=== PATIENT | male | born 1970 | race Hispanic/Latino ===

== ENCOUNTER 2018-11-08 19:38 | Inpatient (IN) | payer SELFPAY ==
[~2018-11-08] VITALS: Ht 162.6 cm; Wt 102.1 kg
[2018-11-08] MEDS ORDERED: ACETAMINOPHEN EXTRA STRENGTH 500 MG TABLET ONE (20:24)
[2018-11-08] MEDS ORDERED: SODIUM CHLORIDE 0.9% 1000ML 1,000 ML IV ONE ×2 (20:24→21:55)
[2018-11-08 20:32] LABS: BASOPHILS % (AUTO) 0.2 % (0.0-5.0); EOSINOPHILS % (AUTO) 0.2 % (0.0-8.0); HEMATOCRIT 40.6 % (42-54); LYMPHOCYTES % (AUTO) 11.6 % (21.0-51.0); MEAN CORPUSCULAR HEMOGLOBIN 30.5 pg (27.0-33.0); MEAN CORPUSCULAR HGB CONC 34.2 g/dL (32.0-36.0); MEAN CORPUSCULAR VOLUME 89.2 fL (79-99); MONOCYTES % (AUTO) 5.2 % (3.0-13.0); NEUTROPHILS % (AUTO) 82.8 % (40.0-77.0); PLATELET COUNT (AUTO) 407 K/uL (130-400); RED BLOOD CELL COUNT(AUTO) 4.55 MIL/uL (4.50-6.20); WHITE BLOOD COUNT (AUTO) 10.9 K/uL (4.8-10.8)
[2018-11-08] MEDS ORDERED: ZOSYN 3.375GM+NS 50ML 50 ML IV ONE (20:48)
[2018-11-08 20:51] LABS: INR 0.93 (0.85-1.15); PARTIAL THROMBOPLASTIN TIME 28.4 SEC (26.3-35.5); PROTHROMBIN TIME 9.8 SEC (9.6-11.6)
[2018-11-08 20:53] LABS: CARBON DIOXIDE 22 mmol/L (21-32); CHLORIDE 96 mmol/L (101-111); CREATININE 1.1 mg/dL (0.5-1.5); GLOMERULAR FILTR. RATE CALC 76 mL/min (>60); GLUCOSE,RANDOM 141 mg/dL (70-105); POTASSIUM 3.6 mmol/L (3.5-5.1); SODIUM SERUM 131 mmol/L (136-145); UREA NITROGEN, BLOOD 10 mg/dL (7-18)
[2018-11-08 20:58] LABS: APPEARANCE,URINE Cloudy (CLEAR); BILIRUBIN,URINE Small (NEGATIVE); COLOR,URINE Dark Yellow (YELLOW); GLUCOSE, URINE (UA) Negative (NEGATIVE); KETONES,URINE Trace mg/dL (NEGATIVE); LEUKOCYTE ESTERASE ,URINE Trace (NEGATIVE); NITRATE,URINE Negative (NEGATIVE); OCCULT BLOOD,URINE Negative (NEGATIVE); PROTEIN,URINE POS 1+ mg/dL (NEGATIVE)
[2018-11-08 21:05] LABS: ALANINE AMINOTRANSFERASE 103 U/L (12-78); ALBUMIN 2.7 g/dL (3.5-5.0); ASPARTATE AMINOTRANSFERASE 60 U/L (10-37); BILIRUBIN,TOTAL 0.6 mg/dL (0.2-1.0); CREATINE KINASE, TOTAL 51 U/L (21-232); MYOGLOBIN 37 ng/mL (10-92); TROPONIN I < 0.04 ng/mL (0.00-0.06)
[2018-11-08 21:10] LABS: RBC,URINE 0-1 /HPF (0-1)
[2018-11-08 21:11] LABS: BACTERIA,URINE Few /HPF (None Seen); SQUAMOUS EPITHELIAL CELL,UR Few /HPF (0-2)
[2018-11-08 21:12] LABS: MUCUS,URINE Moderate LPF (None Seen)
[2018-11-08] MEDS ORDERED: MORPHINE SULFATE 4 MG/1ML SYG ONE (21:31)
[2018-11-08] MEDS ORDERED: LIDOCAINE HCL 2% JELLY 5 ML ONE (21:57)
[2018-11-08] MEDS ORDERED: LIDOCAINE PF 2% 5ML ABBOJECT ONE (22:29)
[2018-11-08] MEDS ORDERED: MIDAZOLAM HCL 1 MG/ML 2ML VIAL ONE (22:29)
[2018-11-08] MEDS ORDERED: PROPOFOL 10 MG/ML 20ML VIAL IV ONE (22:29)
[2018-11-08] MEDS ORDERED: SUCCINYLCHOLINE 200MG/10ML SYR ONE (22:29)
[2018-11-08] MEDS ORDERED: FENTANYL CITRATE PF 50 MCG/1 ML 2ML VIAL ONE ×3 (22:30→23:54)
[2018-11-08] MEDS ORDERED: ROCURONIUM 10MG/1ML SYR 10 MG/ML ML ONE (22:30)
[2018-11-08] MEDS ORDERED: NEOSTIGMINE 5MG/5ML SYR IV ONE (23:22)
[2018-11-08] MEDS ORDERED: GLYCOPYRROLATE 1 MG/5 ML SYRINGE ONE (23:22)
[2018-11-08] MEDS ORDERED: ONDANSETRON HCL 4 MG/2 ML VIAL ONE (23:49)
[2018-11-08] MEDS ORDERED: KETOROLAC TROMETHAMINE 30MG/ML ONE (23:57)
[2018-11-09] VITALS (34 sets, daily range): BP systolic 99–159; BP diastolic 45–83
--- NOTE | 2018-11-09 00:30 | NUR ---
NEW ADMIT 48 YEAR OLD MALE PT RECEIVED FROM O.R. VIA BED. PT ON 100% NRM. MOVING ALL EXTREMITIES, PT ORIENTED TO ROOM. ASSESSMENT COMPLETED. SEE NURSING DATA BASE FOR MORE INFORMATION.
[2018-11-09] MEDS ORDERED: MORPHINE SULFATE 4 MG/1ML SYG ONE ×2 (01:42→06:09)
[2018-11-09] MEDS: LACTATED RINGERS 1000ML 1,000 ML IV SCH ×4 (01:45→21:13)
[2018-11-09] MEDS ORDERED: PHARMACY COMMUNICATION MISC SCH (01:45)
[2018-11-09] MEDS ORDERED: ONDANSETRON HCL 4 MG/2 ML VIAL IVP PRN (01:45)
[2018-11-09] MEDS ORDERED: ZOSYN 3.375GM+NS 50ML 50 ML IV SCH (02:00)
[2018-11-09 03:46] LABS: BASOPHILS % (AUTO) 0.1 % (0.0-5.0); HEMATOCRIT 34.4 % (42-54); LYMPHOCYTES % (AUTO) 8.6 % (21.0-51.0); MEAN CORPUSCULAR HEMOGLOBIN 30.7 pg (27.0-33.0); MEAN CORPUSCULAR VOLUME 90.4 fL (79-99); MONOCYTES % (AUTO) 8.1 % (3.0-13.0); NEUTROPHILS % (AUTO) 83.2 % (40.0-77.0); PLATELET COUNT (AUTO) 366 K/uL (130-400); RED CELL DISTRIBUTION WIDTH 13.9 % (11.0-15.5); WHITE BLOOD COUNT (AUTO) 13.6 K/uL (4.8-10.8)
[2018-11-09 03:54] LABS: CREATININE 1.2 mg/dL (0.5-1.5); POTASSIUM 4.3 mmol/L (3.5-5.1)
[2018-11-09] MEDS ORDERED: KETOROLAC TROMETHAMINE 30MG/ML ONE (03:57)
[2018-11-09] MEDS: ZOSYN 3.375GM+NS 50ML 50 ML IV SCH ×3 (06:13→21:12)
[2018-11-09 07:49] LABS: ABG BASE EXCESS -5.3 mmol/L (-2.0-3.0); ABG HCO3 19.2 mmol/L (21.0-28.0); ABG OXYGEN SATURATION 96.4 % (95.0-99.0); ABG PCO2 35 mmHg (35-48)
[2018-11-09] MEDS: KETOROLAC TROMETHAMINE 30MG/ML IV PRN (10:50)
--- NOTE | 2018-11-09 12:00 | NUR ---
CHETAN BHAKTA [employer] COORDINATOR FOR DR. WANG IN TO SEE PATIENT.
[2018-11-09] MEDS: MORPHINE SULFATE 4 MG/1ML SYG IV PRN ×3 (12:45→21:04)
--- NOTE | 2018-11-09 13:54 | NUR ---
DC PLAN VISITED WITH PATIENT. PATIENT LIVES WITH SPOUSE. INDEPENDENT ABLE TO PERFORM ADL'S. PATIENT HAS NO SERVICES OR DME'S. FEELS SAFE TO RETURN HOME. Addendum: 11/09/18 at 1356 by KEV OCONNELL RN CM Amended: Links added.
--- NOTE | 2018-11-09 14:27 | NUR ---
DC PLAN SET UP PATIENT WITH IRENE FOR COLOSTOMY SUPPLIES IN PATIENTS ROOM. Addendum: 11/09/18 at 1430 by KEV OCONNELL RN CM Amended: Links added.
--- NOTE | 2018-11-09 21:08 | NUR ---
DR GARCIA NOTIFIED OF PATIENT"S TEMPERATURE 101.8 AND ABD AEROBIC WOUND CULTURE RESULTS, NEW ORDERS FOR TYLENOL SUPPOSITORY PRN, OK TO TRANSFER TO MED/SURG, CONTINUE SAME ORDERS.
[2018-11-09] MEDS ORDERED: ACETAMINOPHEN 650 MG SUPPOSITORY RC ONE (21:09)
[2018-11-09] MEDS ORDERED: ACETAMINOPHEN 650 MG SUPPOSITORY RC PRN (21:15)
--- NOTE | 2018-11-09 21:30 | NUR ---
REPORT GIVEN TO TESSY FRYE , PATIENT TRANSFERRED TO ROOM 311.
[2018-11-10] MEDS: MORPHINE SULFATE 4 MG/1ML SYG IV PRN ×5 (01:14→22:25)
[2018-11-10 04:00] VITALS: BP 133/79
[2018-11-10] MEDS: ZOSYN 3.375GM+NS 50ML 50 ML IV SCH ×3 (05:15→21:22)
[2018-11-10] MEDS: LACTATED RINGERS 1000ML 1,000 ML IV SCH ×4 (05:16→21:28)
[2018-11-10 05:41] LABS: BASOPHILS % (AUTO) 0.2 % (0.0-5.0); EOSINOPHILS % (AUTO) 0.3 % (0.0-8.0); HEMATOCRIT 33.7 % (42-54); LYMPHOCYTES % (AUTO) 9.1 % (21.0-51.0); MEAN CORPUSCULAR HGB CONC 33.2 g/dL (32.0-36.0); MEAN CORPUSCULAR VOLUME 90.5 fL (79-99); MONOCYTES % (AUTO) 5.1 % (3.0-13.0); NEUTROPHILS % (AUTO) 85.3 % (40.0-77.0); NUCLEATED RED BLOOD CELLS 0.1 % (0.0-0.19); PLATELET COUNT (AUTO) 338 K/uL (130-400); RED BLOOD CELL COUNT(AUTO) 3.72 MIL/uL (4.50-6.20); RED CELL DISTRIBUTION WIDTH 14.3 % (11.0-15.5); WHITE BLOOD COUNT (AUTO) 14.2 K/uL (4.8-10.8)
[2018-11-10 05:48] LABS: POTASSIUM 3.9 mmol/L (3.5-5.1)
[2018-11-10 07:30] VITALS: BP 143/77
[2018-11-10 11:00] VITALS: BP 137/72
[2018-11-10 16:00] VITALS: BP 136/89
[2018-11-10 19:05] VITALS: BP 160/83
--- NOTE | 2018-11-10 19:27 | NUR ---
CM Note: [facility] approved, will deliver at pt's residence Spoke to Terri Fritz received all clinicals and pt's signed paper. Will have DME's delivered at pt's residence. Primary nurse aware. CM to cont to follow up.
[2018-11-10] MEDS: FAMOTIDINE 20MG TAB 20 MG TAB PO SCH (21:22)
[2018-11-10 23:05] VITALS: BP 138/76
[2018-11-11 03:10] VITALS: BP 148/92
[2018-11-11] MEDS: KETOROLAC TROMETHAMINE 30MG/ML IV PRN ×2 (03:56→15:32)
[2018-11-11] MEDS: LACTATED RINGERS 1000ML 1,000 ML IV SCH ×3 (04:54→20:24)
[2018-11-11] MEDS: ZOSYN 3.375GM+NS 50ML 50 ML IV SCH (04:54)
[2018-11-11 05:44] LABS: BASOPHILS % (AUTO) 0.4 % (0.0-5.0); EOSINOPHILS % (AUTO) 0.3 % (0.0-8.0); HEMATOCRIT 30.7 % (42-54); MEAN CORPUSCULAR HEMOGLOBIN 30.4 pg (27.0-33.0); MEAN CORPUSCULAR HGB CONC 33.5 g/dL (32.0-36.0); MEAN CORPUSCULAR VOLUME 90.8 fL (79-99); MONOCYTES % (AUTO) 4.6 % (3.0-13.0); NEUTROPHILS % (AUTO) 86.7 % (40.0-77.0); NUCLEATED RED BLOOD CELLS 0.1 % (0.0-0.19); PLATELET COUNT (AUTO) 344 K/uL (130-400); RED BLOOD CELL COUNT(AUTO) 3.38 MIL/uL (4.50-6.20); RED CELL DISTRIBUTION WIDTH 14.4 % (11.0-15.5); WHITE BLOOD COUNT (AUTO) 16.7 K/uL (4.8-10.8)
[2018-11-11 08:00] VITALS: BP 138/85
[2018-11-11] MEDS: FAMOTIDINE 20MG TAB 20 MG TAB PO SCH ×2 (08:42→20:23)
[2018-11-11] MEDS: MORPHINE SULFATE 4 MG/1ML SYG IV PRN (10:17)
[2018-11-11 11:55] VITALS: BP 138/72
[2018-11-11] MEDS: LEVOFLOXACIN 750 MG/D5W 150 ML 150 ML IV SCH (13:54)
[2018-11-11 15:47] VITALS: BP 127/75
[2018-11-11 20:29] VITALS: BP 145/75
[2018-11-11 23:18] VITALS: BP 134/86
[2018-11-12] MEDS: KETOROLAC TROMETHAMINE 30MG/ML IV PRN ×2 (01:59→09:55)
[2018-11-12 04:14] VITALS: BP 135/77
[2018-11-12 04:48] LABS: BASOPHILS % (AUTO) 0.2 % (0.0-5.0); EOSINOPHILS % (AUTO) 0.8 % (0.0-8.0); HEMATOCRIT 28.4 % (42-54); LYMPHOCYTES % (AUTO) 10.5 % (21.0-51.0); MEAN CORPUSCULAR HEMOGLOBIN 30.6 pg (27.0-33.0); MEAN CORPUSCULAR HGB CONC 34.2 g/dL (32.0-36.0); MEAN CORPUSCULAR VOLUME 89.5 fL (79-99); MONOCYTES % (AUTO) 5.6 % (3.0-13.0); NEUTROPHILS % (AUTO) 82.9 % (40.0-77.0); PLATELET COUNT (AUTO) 382 K/uL (130-400); RED BLOOD CELL COUNT(AUTO) 3.17 MIL/uL (4.50-6.20); RED CELL DISTRIBUTION WIDTH 14.2 % (11.0-15.5); WHITE BLOOD COUNT (AUTO) 13.5 K/uL (4.8-10.8)
[2018-11-12] MEDS: LACTATED RINGERS 1000ML 1,000 ML IV SCH ×2 (04:59→11:39)
[2018-11-12 08:00] VITALS: BP 134/84
[2018-11-12] MEDS: FAMOTIDINE 20MG TAB 20 MG TAB PO SCH ×2 (09:54→20:44)
[2018-11-12 11:49] VITALS: BP 136/68
[2018-11-12] MEDS: LEVOFLOXACIN 750 MG/D5W 150 ML 150 ML IV SCH (14:43)
[2018-11-12] MEDS: MORPHINE SULFATE 4 MG/1ML SYG IV PRN (15:34)
--- NOTE | 2018-11-12 16:00 | NUR ---
DRESSING TO SURGICAL WOUND CHANGED, WOUND OPEN, CLEAN AND REPACKED, COVERED WITH ABD, DRESSING. PRIOR TO DRESSING MEDICATED FOR DISCOMFORT.
[2018-11-12 17:02] VITALS: BP 146/88
[2018-11-12] MEDS ORDERED: LACTATED RINGERS 1000ML 1,000 ML IV SCH (18:45)
[2018-11-12 20:00] VITALS: BP 150/81
[2018-11-13] VITALS: BP 137/88
[2018-11-13] MEDS: KETOROLAC TROMETHAMINE 30MG/ML IV PRN ×2 (00:31→12:27)
[2018-11-13 04:00] VITALS: BP 151/89
[2018-11-13 08:00] VITALS: BP 145/93
--- NOTE | 2018-11-13 08:30 | NUR ---
WOUND DRESSING CHANGE DRESSING TO SURGICAL WOUND CHANGED. WOUND CLEANED WITH NS SOAKED GAUZE, WET TO DRY DRESSING APPLIED, COVERED WITH ABD PAD AND SECURED WITH MEDIPOR TAPE. PATIENT TOLERATED PROCEDURE WITHOUT INCIDENT. COLOSTOMY BAG CHANGED.
[2018-11-13] MEDS: FAMOTIDINE 20MG TAB 20 MG TAB PO SCH ×2 (10:12→21:12)
[2018-11-13 12:00] VITALS: BP 157/86
[2018-11-13] MEDS: LEVOFLOXACIN 750 MG/D5W 150 ML 150 ML IV SCH (13:43)
--- NOTE | 2018-11-13 15:08 | NUR ---
Nutrition Intervention: Nutrition screen based on LOS x 5 days. Pt. admitted with Dx of Diverticulitis of large intestine with perforation. Pt. on Soft diet with good p.o. intake. Pt. c/o loose stools. Pt. 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 Labs reviewed(Alb 2.7). LBM: 11/13/18, loose. SR-20, elastic. BMI: 38.6, Obesity Grade 2. Pt. educated on Colostomy Nutrition Therapy and provided with education material. Pt. verbalized understanding. Recommendations: 1) Rec. No Conc. Sweets Soft [place] diet. 2) Colostomy Nutrition Therapy diet education given to patient. 3) Continue to monitor pt's nutritional status. 4) Consult RD as nutrition concerns arise. Addendum: 11/13/18 at [address] Amended: Links added.
[2018-11-13 16:00] VITALS: BP 139/92
[2018-11-13 20:49] VITALS: BP 144/91
[2018-11-14] VITALS (7 sets, daily range): BP systolic 137–155; BP diastolic 81–97
[2018-11-14] MEDS: MORPHINE SULFATE 4 MG/1ML SYG IV PRN (03:55)
--- NOTE | 2018-11-14 04:20 | NUR ---
WOUND DRESSING. DRESSING TO SURGICAL WOUND CHANGED. WOUND CLEANED WITH NS SOAKED GAUZE, WET TO DRY DRESSING APPLIED, COVERED WITH ABD PAD AND SECURED WITH MEDIPOR TAPE. PATIENT TOLERATED PROCEDURE WITHOUT INCIDENT. PAIN MEDICATION ADMINISTERED FOR C/O PAIN TO ABD. WILL CONTINUE TO MONITOR.
[2018-11-14] MEDS: FAMOTIDINE 20MG TAB 20 MG TAB PO SCH ×2 (10:04→20:52)
[2018-11-14] MEDS: ACETAMINOPHEN-CODEINE 300/30MG TAB PO PRN ×2 (12:44→20:52)
[2018-11-14] MEDS: LEVOFLOXACIN 750 MG/D5W 150 ML 150 ML IV SCH (13:20)
[2018-11-15 04:28] VITALS: BP 160/95
[2018-11-15] MEDS: ACETAMINOPHEN-CODEINE 300/30MG TAB PO PRN ×2 (05:32→13:41)
[2018-11-15 06:00] LABS: HEMATOCRIT 32.9 % (42-54); MEAN CORPUSCULAR HEMOGLOBIN 30.2 pg (27.0-33.0); MEAN CORPUSCULAR HGB CONC 33.4 g/dL (32.0-36.0); MEAN CORPUSCULAR VOLUME 90.6 fL (79-99); PLATELET COUNT (AUTO) 521 K/uL (130-400); RED BLOOD CELL COUNT(AUTO) 3.63 MIL/uL (4.50-6.20); RED CELL DISTRIBUTION WIDTH 14.1 % (11.0-15.5); WHITE BLOOD COUNT (AUTO) 13.2 K/uL (4.8-10.8)
--- NOTE | 2018-11-15 06:00 | NUR ---
WOUND DRESSING. DRESSING TO SURGICAL WOUND CHANGED. WOUND CLEANED WITH NS SOAKED GAUZE, WET TO DRY DRESSING APPLIED, COVERED WITH ABD PAD AND SECURED WITH MEDIPOR TAPE. PATIENT TOLERATED PROCEDURE WITHOUT INCIDENT. PAIN MEDICATION ADMINISTERED PRIOR FOR C/O PAIN TO ABD. PT EDUCATED ON S/S OF INFECTION TO LOOK FOR, PT STATED WILL BE DOING DRESSING CHANGED AT HOME. NOT HERE AT THIS TIME, WILL ENDORSE DRESSING CHANGE EDUCATION FOR TO MORNING SHIFT NURSE.
[2018-11-15 06:22] LABS: EOSINOPHILS % (MANUAL) 2 % (1-6); LYMPHOCYTES % (MANUAL) 24 % (22-44); MAN.DIFF COMMENT-IMPRESSION MANUAL DIFFERENTIAL; MONOCYTES % (MANUAL) 4 % (2-9); SEGMENTED NEUTROPHILS % 70 % (40-70)
[2018-11-15 06:23] LABS: PLATELET MORPHOLOGY COMMENT SLIGHT INCREASED
[2018-11-15 07:30] VITALS: BP 146/93
[2018-11-15] MEDS: FAMOTIDINE 20MG TAB 20 MG TAB PO SCH (09:04)
[2018-11-15 11:00] VITALS: BP 147/76
[2018-11-15] MEDS: LEVOFLOXACIN 750 MG/D5W 150 ML 150 ML IV SCH (13:41)
[2018-11-15 16:00] VITALS: BP 141/80
--- NOTE | 2018-11-15 20:45 | NUR ---
PT D/C UPDATE Pt AOX3, pt with at bedside, pt d/c is to home, pt and taught aseptic wound care dressing changes, pt's verbalized understanding and demonstration, pt antibiotics and pain med prescriptions given, pt to take abx daily for seven days, take pain meds for pain Q6Hs and PRN, pt teaching done on colostomy care, colostomy and wound care dressing supplies provided, pt to follow up with Dr. Murphy on Thursday11/22/2018, pt to call for appointment time, pt IV taken out, no complication noted, pt finally d/c home. All question and concerns answered.
== END 2018-11-15 20:40 | disposition home or self-care (01) | DRG 329 ==
LOC: EDH 19:38 → EDHIP 19:39 → UNDOADMIN 11-09 00:23 → 2CH 11-09 01:02 → 3BH 11-09 21:35
PROVIDERS: ADMIT Surgery; ATTEND Surgery
PROC: 0DBN0ZZ Excision of Sigmoid Colon, Open Approach (ICD-10-PCS; 2018-11-08)
PROC: 0D1N0Z4 Bypass Sigmoid Colon to Cutaneous, Open Approach (ICD-10-PCS; principal; 2018-11-08 22:45)
PROC: 0DBM0ZZ Excision of Descending Colon, Open Approach (ICD-10-PCS; 2018-11-08 22:45)
DX: K57.20 Diverticulitis of large intestine with perforation and abscess without bleeding (principal); K65.9 Peritonitis, unspecified; F17.210 Nicotine dependence, cigarettes, uncomplicated; Z68.38 Body mass index [BMI] 38.0-38.9, adult; E66.01 Morbid (severe) obesity due to excess calories; E11.9 Type 2 diabetes mellitus without complications; K21.9 Gastro-esophageal reflux disease without esophagitis; B96.20 Unspecified Escherichia coli [E. coli] as the cause of diseases classified elsewhere
CPT/HCPCS: 36415; 36600; 71045; 74176; 80048; 80053; 81001; 82550; 82803; 82948; 83605; 83874; 84484; 85025; 85610; 85730; 87040; 87070; 87076; 87077; 87088; 87186; 87205; 87804; 88307; 93005; 97039; 99291; A4344; A5061; G0378; J0330; J1885; J1956; J2001; J2250; J2270; J2405; J2543; J2704; J2710; J3010; J3490; J7030; J7120